=== PATIENT | female | born 1940 | race Caucasian/White ===

== ENCOUNTER 2016-05-07 14:28 | Emergency (ER) | payer OTHER ==
[2016-05-07 15:01] VITALS: O2SAT 98
[2016-05-07] MEDS ORDERED: NS 1,000 ML IV ONE ×2 (15:55→16:45)
--- NOTE | 2016-05-07 16:13 | UCPHY ---
H & P Patient Type: New Chief Complaint Nursing Narrative: fatigue, n/v/d lasting 3 days, resolved 1 day ago, light headed Time Seen by Provider: 05/07/16 16:03 HPI/ROS: HPI: 76-year-old female presents to urgent care with chief concern fatigue, weakness after nausea, vomiting, diarrhea x3 days that ended yesterday. Reports associated lightheadedness when she moves quickly. She is eating and drinking without difficulty. 1 day prior to onset of the gastroenteritis she had 9 days of a URI symptoms associated with decreased appetite. Her son who she lives with was concerned that she was fatigued after these illnesses and brought her in for IV fluids. Denies fever, chills, headache, URI symptoms currently, shortness of breath, chest pain, abdominal pain, urinary symptoms, back or flank pain. Home medication includes valsartan. The past medical history notable for hypertension. ROS:10 point review of systems is negative other than as stated in HPI Source: Patient Exam Limitations: No limitations - Medical/Surgical History Other PMH: htn - Family History Significant Family History: No pertinent family hx - Social History Smoking Status: Never smoked Alcohol Use: None Drug Use: None Additional Social History: Lives with her son - Physical Exam Exam: Vital signs stable, reviewed by me General: Awake, alert, calm, cooperative. No acute distress. Head: Normalocephalic. Atraumatic. EENT: PERRLA. EOMI. No pallor or injection. Anicteric. No nystagmus. No injection. TMs intact bilaterally with normal landmarks. No rhinnorhea, nasal passages clear. Oropharynx without redness, exudates, or lesions. Tonsils 2+ bilaterally, no exudates. Neck: Supple, nontender. No lymphadenopathy. Full range of motion. No meningismus. Respiratory: Breathing unlabored. Breath sounds equal bilaterally and clear to auscultation. No adventitious sounds. CV: Chest nontender, atraumatic. Heart rate regular. No murmur, distal pulses 2+ bilaterally. Brisk cap refill all extremities. GI: Abdomen soft, nontender. Bowel sounds normoactive and positive x4 quadrants. : No suprapubic tenderness. No CVA or flank tenderness. Neuro: Alert. Oriented x 3. Speech clear. Nonfocal cranial nerves throughout. Sensation intact all extremities. Skin: Skin warm, dry, intact. Mucous membranes moist. No rashes. Skin turgor normal. Extremities: Full range of motion in all 4 extremities. Strength 5+ all extremities. Constitutional: Initial Vital Signs Temperature (C) 36.3 C 05/07/16 14:35 Heart Rate 62 05/07/16 14:35 Respiratory Rate 18 05/07/16 14:35 Blood Pressure 132/61 H 05/07/16 14:35 O2 Sat (%) 98 05/07/16 14:35 O2 Delivery Mode Room Air Allergies/Adverse Reactions: No Known Allergies Allergy (Unverified 05/07/16 14:56) Home Medications: Medication Instructions Recorded Valsartan [Diovan] 05/07/16 Medical Decision Making ED Course/Re-evaluation: A 76-year-old afebrile nontoxic female presents to the urgent care after 3 days of nausea, vomiting, diarrhea. She presents because her son was concerned as she was weak and fatigued at for nausea and vomiting for 3 days. Nausea and vomiting ended yesterday. Patient is tolerating food and fluids presently. Her vitals are stable. She is afebrile. IV started. Labs pending. We will check her electrolytes. She will be given 2 L normal saline. She has no discomfort whatsoever. Her abdomen is soft with positive bowel sounds. White count 9880. 67.5% neutrophils. Sodium 135. Potassium 3.5. Chloride 99. CO2 23, anion gap 13, Mag 1.9. BUN 32, creatinine 1.4. Patient was given 2 L normal saline. 1710: After 2 L normal saline, patient voiding. Vitals stable. She feels much better. Counseled to follow up next week with primary care. Verbalizes understanding and agrees to do so. Differential Diagnosis: Differential diagnosis includes but is not limited to gastroenteritis, food- borne illness, viral syndrome, food allergy, IBS, IBD - Data Points Laboratory Results: Laboratory Results 05/07/16 16:05 05/07/16 16:05 05/07/16 16:05 WBC 9.88 H 10^3/uL (3.80-9.50) RBC 4.47 10^6/uL (4.18-5.33) Hgb 15.1 g/dL (12.6-16.3) Hct 43.6 % (38.0-47.0) MCV 97.5 fL (81.5-99.8) MCH 33.8 pg (27.9-34.1) MCHC 34.6 g/dL (32.4-36.7) RDW 11.5 % (11.5-15.2) Plt Count 285 10^3/uL (150-400) MPV 9.5 fL (8.7-11.7) Neut % (Auto) 67.5 % (39.3-74.2) Lymph % (Auto) 22.3 % (15.0-45.0) [place] % (Auto) 9.0 % (4.5-13.0) Eos % (Auto) 0.5 L % (0.6-7.6) Baso % (Auto) 0.5 % (0.3-1.7) Nucleat RBC Rel Count 0.0 % (0.0-0.2) Absolute Neuts (auto) 6.67 H 10^3/uL (1.70-6.50) Absolute Lymphs (auto) 2.20 10^3/uL (1.00-3.00) Absolute Monos (auto) 0.89 H 10^3/uL (0.30-0.80) Absolute Eos (auto) 0.05 10^3/uL (0.03-0.40) Absolute Basos (auto) 0.05 10^3/uL (0.02-0.10) Absolute Nucleated RBC 0.00 10^3/uL (0-0.01) Immature Gran % 0.2 % (0.0-1.1) Immature Gran # 0.02 10^3/uL (0.00-0.10) Sodium 135 mEq/L (134-144) Potassium 3.5 mEq/L (3.5-5.2) Chloride 99 mEq/L (97-110) Carbon Dioxide 23 mEq/l (22-31) Anion Gap 13 mEq/L (8-16) BUN 32 H mg/dL (7-23) Creatinine 1.4 H mg/dL (0.6-1.0) Estimated GFR 37 Glucose 96 mg/dL (70-100) Calcium 9.3 mg/dL (8.5-10.4) Magnesium 1.9 mg/dL (1.6-2.3) Medications Given: Discontinued Medications Sodium Chloride (Ns) 1,000 mls @ 0 mls/hr IV ONCE ONE PRN Reason: Wide Open Stop: 05/07/16 15:56 Last Admin: 05/07/16 16:15 Dose: 1,000 mls Sodium Chloride (Ns) 1,000 mls @ 0 mls/hr IV ONCE ONE PRN Reason: Wide Open Stop: 05/07/16 16:46 Last Admin: 05/07/16 16:46 Dose: 1,000 mls Departure - Departure Disposition: Home, Routine, Self-Care Clinical Impression: Gastroenteritis, Dehydration, Prerenal azotemia Condition: Good Instructions: Gastroenteritis (ED), Dehydration (ED) Additional Instructions: Plan: Go home and rest. Clear liquids if nauseated, advance to bland diet as tolerated.(broth, bananas, rice, applesauce, and toast.) Avoid dairy, caffeine, fatty foods, and raw vegetables for now. Might try Imodium over the counter for diarrhea. Might try using Psyllium husk (Metamucil) 2-3 times daily to increase bulk. Recheck if any bloody vomit, dark or bloody stools. Recheck right away if worsening abdominal pain. Good handwashing to prevent spread of infection. Follow up with primary care next week as discussed--When you call to schedule appointment, please let the office know you are an "ER follow up" appointment" Referrals: NONE *PRIMARY CARE P,. [Primary Care Provider] - As per Instructions - PQRS PQRS Measurement: 134: Depression screening and followup, PRIME MD-PHQ2 (12 years and older) Over the last 2 weeks, how often have you been bothered by any of the following problems? 1. Feeling down, depressed, or hopeless? 2. Little interest or pleasure in doing things? Patient answered no to both 1 and 2 130: Documentation of medications. Reviewed all patient medications, doses, route and frequency. 226: Do you smoke? No 47: 65 and older: Advanced care planning. Patient has advanced directive. 51: 18 years old and older with diagnosis of COPD, spirometry performance. Patient has no history of COPD 52: 18 years old and older with COPD and symptoms of COPD or FEV1<60% no history of COPD
[2016-05-07 16:14] LABS: % IMMATURE GRANULYOCYTES 0.2 % (0.0-1.1); ABSOLUTE IMMATURE GRANULOCYTES 0.02 10^3/uL (0.00-0.10); ADD DIFF? NO; ADD MORPH? NO; ADD SCAN? NO; ATYPICAL LYMPHOCYTE FLAG 50 (0-99); FRAGMENT RBC FLAG 0 (0-99); HEMATOCRIT 43.6 % (38.0-47.0); HEMOGLOBIN 15.1 g/dL (12.6-16.3); LEFT SHIFT FLG 0 (0-99); LIPEMIA HEMOLYSIS FLAG 90 (0-99); MEAN CELL HEMOGLOBIN 33.8 pg (27.9-34.1); MEAN CELL HEMOGLOBIN CONCENTR. 34.6 g/dL (32.4-36.7); MEAN CELL VOLUME 97.5 fL (81.5-99.8); MEAN PLATELET VOLUME 9.5 fL (8.7-11.7); PLATELET CLUMPS FLAG 10 (0-99); PLATELET COUNT 285 10^3/uL (150-400); RED BLOOD CELL COUNT 4.47 10^6/uL (4.18-5.33); RED CELL DISTRIBUTION WIDTH 11.5 % (11.5-15.2)
[2016-05-07 16:25] LABS: CALCIUM 9.3 mg/dL (8.5-10.4); CREATININE 1.4 mg/dL (0.6-1.0); MAGNESIUM 1.9 mg/dL (1.6-2.3); POTASSIUM 3.5 mEq/L (3.5-5.2)
[2016-05-07 17:20] VITALS: BP 112/74; PULSE 99; RESP 16; TEMP 98.2
== END 2016-05-07 17:25 | disposition home or self-care (01) ==
LOC: CED 14:28
DX: K52.9 Noninfective gastroenteritis and colitis, unspecified (principal); E86.0 Dehydration; I10 Essential (primary) hypertension
CPT/HCPCS: 96360; G0463; 80048-PO; 83735-PO; 85025-PO

== ENCOUNTER 2017-06-06 15:48 | Emergency (ER) | payer OTHER ==
[2017-06-06 16:04] VITALS: RESP 20
--- NOTE | 2017-06-06 16:17 | CPEKG ---
Heart Rate: 122 RR Interval: 492 QRSD Interval: 70 QT Interval: 300 QTC Interval: 428 QRS Rison: 10 T Wave Rison: 12 EKG Severity - ABNORMAL ECG - EKG Impression: ATRIAL FIBRILLATION, V-RATE 82-147 EKG Impression: BORDERLINE T ABNORMALITIES, ANTERIOR LEADS Electronically Signed By: Olivier Oviedo 06-Jun-2017 22:00:59
[2017-06-06 16:31] LABS: PLATELET COUNT 487 10^3/uL (150-400)
[2017-06-06] MEDS ORDERED: ASPIRIN 81 MG CHEWABLE TAB PO ONE (16:57)
[2017-06-06] MEDS ORDERED: IOPAMIDOL (ISOVUE 370) 100 ML BTL IV ONE (17:07)
[2017-06-06] MEDS ORDERED: FUROSEMIDE 20 MG/2 ML VIAL IVP ONE (17:57)
--- NOTE | 2017-06-06 18:17 | EDPHY ---
H & P Stated Complaint: sent from PCP for further pne work up Time Seen by Provider: 06/06/17 15:53 HPI/ROS: This patient saw her primary care physician today with history of chest discomfort with inspiration and occasional mild cough noted to have diminished breath sounds at the bases and a chest x-ray that revealed bilateral pleural effusions and atelectasis versus infiltrate concerning primary physician for pneumonia. The patient was apparently seen yesterday and then had her chest x- ray today. She was started on Zithromax and took the 500 mg dose prior to arrival. The patient has the impression that she is dehydrated and needs some IV fluids. She reports some fatigue associated with her symptoms. She has a known history of chronic atrial fibrillation and does not currently take any medications for this. ROS: She denies any fevers or chills. She does have fatigue and mild myalgias. HEENT: Some coryza over the past 4-5 days. No sinus pain. No ear pain. Pulmonary: She denies shortness of breath. She reports occasional dry cough over the past 4 days. No hemoptysis. No pleuritic pain. Cardiovascular: No leg swelling. She denies any lightheadedness. GI: No abdominal pain nausea or vomiting. Normal bowel movements. : No complaints Integumentary: No skin rash or other complaints Endocrine: No complaints Neuro: Her [id number] reports that the patient does seem to be experiencing some early dementia symptoms. She cites difficulty with memory. Complete review of symptoms is otherwise negative. Source: Patient Exam Limitations: No limitations - Personal History Current Tetanus Diphtheria and Acellular Pertussis (TDAP): Unsure - Medical/Surgical History PMH: Chronic atrial fibrillation Mild dementia Other PMH: htn/ Afib - Family History Significant Family History: No pertinent family hx - Social History Smoking Status: Never smoked Alcohol Use: None Drug Use: None Additional Social History: Lives with her son and [id number]. - Physical Exam Exam: Vital signs are notable for pulse ranges from 100 to high 120s. Irregularly irregular. Other vitals are normal including afebrile status. General Appearance: Alert, no distress. Eyes: Pupils equal and round no pallor or injection. ENT, Mouth: Mucous membranes moist. Respiratory: Diminished at the bases. Otherwise clear to auscultation bilaterally Cardiovascular: Irregularly irregular with no murmur gallop rub Gastrointestinal: Abdomen is soft and nontender, no masses, bowel sounds normal. Neurological: GCS 15. Skin: Warm and dry, no rashes. Musculoskeletal: Neck is supple nontender. Extremities are symmetrical, full range of motion. Psychiatric: Mood and affect are normal DIFFERENTIAL DIAGNOSIS: After history and physical exam differential diagnosis was considered for pneumonia, congestive heart failure, pulmonary embolism, bronchitis, URI with cough, coronary syndrome Constitutional: Initial Vital Signs Temperature (C) 37 C 06/06/17 16:02 Heart Rate 112 H 06/06/17 16:02 Respiratory Rate 20 06/06/17 16:02 Blood Pressure 126/93 H 06/06/17 16:02 O2 Sat (%) 98 06/06/17 16:02 O2 Delivery Mode Room Air Allergies/Adverse Reactions: No Known Allergies Allergy (Unverified 05/07/16 14:56) Home Medications: Medication Instructions Recorded AZITHROMYCIN 06/06/17 Furosemide [Lasix 20 MG (*)] 20 mg PO DAILY #30 tab 06/06/17 Metoprolol Succinate Xr [Toprol Xl 12.5 mg PO DAILY #30 tab.sr 06/06/17 25 mg (*)] Potassium Cl [Klor-Con 10 meq (RX)] 10 meq PO DAILY #30 tab 06/06/17 Medical Decision Making - Diagnostics EKG Interpretation: 12 lead EKG performed at 4:15 p.m. indication fatigue, rule out coronary syndrome or right heart strain Atrial fibrillation at 1:22 a.m. QRS of 70, QTC of 428 [place]: QRS of 10, T of 12 ST segments: Slight biphasic T-wave in V2 and V3. Otherwise normal Overall assessment atrial fibrillation with borderline T-wave abnormalities anterior leads. Imaging Results: Imaging Impressions Chest/Thorax CTA 06/06/17 16:56 Impression: 1. No evidence of pulmonary thromboembolic disease. 2. Cardiomegaly. Mild pericardial effusion. Small bilateral pleural effusions. Potential component of congestive heart failure. 3. Mild atelectasis both lung bases. Minimal atelectasis lingula and right middle lobe. 4. Calcified granuloma right upper lobe. Results called and discussed with Olivier Oviedo M.D., at June 06, 2017 at 1747. E:amm Imaging: Discussed imaging studies w/ inbound call center agent Radiologist (CT angio chest. I also reviewed these images and the patient's chest x-ray images myself) ED Course/Re-evaluation: IV, monitor After reviewing her chest film missing effusions and atrial fibrillation I stop the IV normal saline after she received 250 IV concerned that she may have failure. Studies: CBC reveals significant leukocytosis. Chemistries reveal normal kidney function. Influenza swab is negative. D-dimer significantly elevated 3.78 BNP is also significantly elevated over 3700. Her troponin is normal Chest CT angio ruled out pulmonary embolism. Also no evidence of airway disease per Dr. Vogt. She does have mild atelectasis and effusions as well as a small pericardial effusion. Given her cough and significant leukocytosis will have her continue her Zithromax. She did receive IV Rocephin shortly after arrival here concern of pneumonia white count 80042. However, as result of her workup her main problem seems to be congestive heart failure with associated pulmonary effusion rather than a primary pneumonia. I counseled her , her daughter in law and her son in some detail regarding this. She is treated with Lasix 20 mg IV with diuresis. I spoke with Dr. Salmeron, cardiology on-call for Dr. Quinonez, her web mobile designer who agrees with the plan to have her take Lasix 20 mg a day. At this low dose she does not warrant potassium supplementation but she is eating a normal diet. Dr. Salmeron also suggests that we start her on low dose metoprolol-12.5 mg a day to help rate control or. However after this discussion the patient reveals that she felt cognitive difficulties while on metoprolol in the past and refuses to start this medication. A plan to have her continue her Zithromax given her significant leukocytosis and cough as he may have a mild bronchitis contributing to the symptoms. The patient will follow up with Dr. Quinonez this week. Also encouraged her to follow up with her primary care physician Dr. Gonzalez - Data Points Laboratory Results: Laboratory Results 06/06/17 16:22 06/06/17 16:22 06/06/17 06/06/17 06/06/17 16:22 16:22 16:22 WBC 19.09 10^3/uL H 10^3/uL (3.80-9.50) RBC 3.35 10^6/uL L 10^6/uL (4.18-5.33) Hgb 11.3 g/dL L g/dL (12.6-16.3) Hct 33.0 % L % (38.0-47.0) MCV 98.5 fL fL (81.5-99.8) MCH 33.7 pg pg (27.9-34.1) MCHC 34.2 g/dL g/dL (32.4-36.7) RDW 13.1 % % (11.5-15.2) Plt Count 487 10^3/uL H 10^3/uL (150-400) MPV 9.1 fL fL (8.7-11.7) Neut % (Auto) 73.6 % % (39.3-74.2) Lymph % (Auto) 17.5 % % (15.0-45.0) [place] % (Auto) 7.5 % % (4.5-13.0) Eos % (Auto) 0.5 % L % (0.6-7.6) Baso % (Auto) 0.3 % % (0.3-1.7) Nucleat RBC Rel Count 0.0 % % (0.0-0.2) Absolute Neuts (auto) 14.05 10^3/uL H 10^3/uL (1.70-6.50) Absolute Lymphs (auto) 3.35 10^3/uL H 10^3/uL (1.00-3.00) Absolute Monos (auto) 1.44 10^3/uL H 10^3/uL (0.30-0.80) Absolute Eos (auto) 0.09 10^3/uL 10^3/uL (0.03-0.40) Absolute Basos (auto) 0.05 10^3/uL 10^3/uL (0.02-0.10) Absolute Nucleated RBC 0.00 10^3/uL 10^3/uL (0-0.01) Immature Gran % 0.6 % % (0.0-1.1) Immature Gran # 0.11 10^3/uL H 10^3/uL (0.00-0.10) D-Dimer 3.87 ug/mLFEU H ug/mLFEU (0.00-0.50) VBG Lactic Acid Sodium 138 mEq/L mEq/L (135-145) Potassium 4.3 mEq/L mEq/L (3.5-5.2) Chloride 103 mEq/L mEq/L (97-110) Carbon Dioxide 22 mEq/l mEq/l (22-31) Anion Gap 13 mEq/L mEq/L (8-16) BUN 18 mg/dL mg/dL (7-23) Creatinine 0.8 mg/dL mg/dL (0.6-1.0) Estimated GFR > 60 Glucose 91 mg/dL mg/dL (70-100) Calcium 9.3 mg/dL mg/dL (8.5-10.4) Troponin I NT-Pro-B Natriuret Pep 3790 pg/mL H pg/mL (0-450) 06/06/17 06/06/17 16:22 16:20 WBC RBC Hgb Hct MCV MCH MCHC RDW Plt Count MPV Neut % (Auto) Lymph % (Auto) [place] % (Auto) Eos % (Auto) Baso % (Auto) Nucleat RBC Rel Count Absolute Neuts (auto) Absolute Lymphs (auto) Absolute Monos (auto) Absolute Eos (auto) Absolute Basos (auto) Absolute Nucleated RBC Immature Gran % Immature Gran # D-Dimer VBG Lactic Acid 1.5 mmol/L mmol/L (0.7-2.1) Sodium Potassium Chloride Carbon Dioxide Anion Gap BUN Creatinine Estimated GFR Glucose Calcium Troponin I < 0.012 ng/mL ng/mL (0.000-0.034) NT-Pro-B Natriuret Pep Medications Given: Discontinued Medications Aspirin (Aspirin) 324 mg PO EDNOW ONE Stop: 06/06/17 16:58 Last Admin: 06/06/17 16:58 Dose: Not Given Furosemide (Lasix Injection) 20 mg IVP EDNOW ONE Stop: 06/06/17 17:58 Last Admin: 06/06/17 18:06 Dose: 20 mg Ceftriaxone Sodium/Dextrose (Rocephin 1 Gm (Premix)) 50 mls @ 100 mls/hr IV EDNOW ONE PRN Reason: Protocol Stop: 06/06/17 17:13 Last Admin: 06/06/17 16:56 Dose: 50 mls Departure - Departure Disposition: Home, Routine, Self-Care Clinical Impression: Pericardial effusion, Pleural effusion, Cough Congestive heart failure (CHF) Qualifiers: Heart failure type: unspecified Heart failure chronicity: chronic Qualified Code(s): I50.9 - Heart failure, unspecified Atrial fibrillation Qualifiers: Atrial fibrillation type: chronic Qualified Code(s): I48.2 - Chronic atrial fibrillation Condition: Good Instructions: Heart Failure (ED), Pleural Effusion (ED), Pericardial Effusion ( ED), Low-Sodium Diet (ED) Additional Instructions: Diagnoses: 1. Congestive heart failure 2. Pericardial effusion 3. Pleural effusion 4. Atrial fibrillation 5. Cough Plan: Take 325 mg aspirin daily Complete ear Zithromax antibiotic course Start Lasix water pill in the morning daily. Start metoprolol succinate-half a 25 mg tab per day to help control your heart rate. This will make the heart more efficient in its pumping Call Dr. Quinonez-web mobile designer for further evaluation Also follow up with Dr. Caldera, your primary care physician Return for any significant worsening despite the treatment plan Referrals: NITA GONZALEZ [Primary Care Provider] - As per Instructions Uriah Quinonez MD [Medical Doctor] - As per Instructions Prescriptions: Furosemide [Lasix 20 MG (*)] 20 mg PO DAILY #30 tab Metoprolol Succinate Xr [Toprol Xl 25 mg (*)] 12.5 mg PO DAILY #30 tab.sr Potassium Cl [Klor-Con 10 meq (RX)] 10 meq PO DAILY #30 tab
[2017-06-06 18:42] VITALS: BP 110/62; PULSE 124; TEMP 98; O2SAT 93
== END 2017-06-06 18:40 | disposition home or self-care (01) ==
LOC: CED 15:48
DX: I31.3 Pericardial effusion (noninflammatory) (principal); J90 Pleural effusion, not elsewhere classified; I48.2 Chronic atrial fibrillation; I11.0 Hypertensive heart disease with heart failure; I50.9 Heart failure, unspecified
CPT/HCPCS: 71275; 93005; 96365; 96375; 99285; J0696; J1940; Q9967; 71046-PO; 80048-PO; 83605-PO; 83880-PO; 84484-PO; 85025-PO; 85378-PO

== ENCOUNTER → 2017-06-06 | Outpatient (CLI) | payer OTHER | LOC: CIMAGING 10:08 | PROVIDERS: ATTEND Family Medicine | DX: J18.9 Pneumonia, unspecified organism (principal); R91.8 Other nonspecific abnormal finding of lung field | CPT/HCPCS: 71046-PO ==

== ENCOUNTER 2017-06-15 10:41 | Emergency (ER) | payer OTHER ==
[2017-06-15 11:01] VITALS: O2SAT 95
[2017-06-15 11:07] VITALS: TEMP 97.7
--- NOTE | 2017-06-15 11:09 | EDPHY ---
H & P Time Seen by Provider: 06/15/17 10:45 HPI/ROS: HPI Recheck from 1 week ago. Not feeling well. 77-year-old female by private vehicle with her daughter. This patient was seen on June [address] Olivier Oviedo. At that time she was sent down to our emergency department from her primary care physician's office for further evaluation for complaint of mild cough with shortness of breath and office chest x-ray which showed bilateral pleural effusions. She was placed on azithromycin by her primary care physician. She has a history of atrial fibrillation and is not anticoagulated nor did she take any rate control medications. She also has a history of hypertension for which she is supposed to take losartan but she states she has been out of this medication for about 3 days. Her workup on June [address] angiogram of her chest which was done secondary to an elevated D-dimer. This showed a mild pericardial effusion and small bilateral pleural effusions. No pulmonary embolism. Her EKG at that time showed a narrow complex atrial fibrillation with ventricular rate in the 120s. She had an elevated BNP in the 3 thousands and a negative troponin during that visit. In consultation with the on-call senior reservations agent during that visit it was advised that she be placed on low-dose Lasix at 20 mg daily as well as metoprolol. She agreed to taking the Lasix but refused to take the metoprolol because she said it made her dementia worse. She reports to me now that she has been taking the Lasix. She came in stating that she wanted her blood work recheck. She states that she has been feeling fatigued and achy. She reports she was worse yesterday and feels better today but still feels fatigued. She has a follow-up appointment with her senior reservations agent tomorrow. This is Dr. Quinonez, she is scheduled to see his nurse practitioner geological survey field assistant. ROS: Constitutional: No fever, no chills. As above. Eyes: No discharge. No changes in vision. ENT: No sore throat. No nasal congestion or rhinorrhea. Respiratory: No cough. No shortness of breath. Cardiac: No chest pain, no palpitations. Gastrointestinal: No abdominal pain, no vomiting, no diarrhea. Genitourinary: No hematuria. No dysuria or increased frequency with urination. Musculoskeletal: No back pain. No neck pain. No myalgias or arthralgias. Skin: No rashes. Neurological: No headache. No focal weakness or altered sensation. Past medical history: Chronic atrial fibrillation, hypertension, dementia. Social history: No alcohol. She does not smoke. No drug use. She lives with her son and daughter in law. Physical Exam: General Appearance: Alert, no distress. This patient is responding to questions appropriately and in full sentences. This patient appears well- hydrated and well-nourished. Eyes: Pupils equal and round no pallor or injection. No lid edema, erythema or injection. Respiratory: There are no retractions, lungs are clear to auscultation with good air movement bilaterally. Cardiovascular: Irregular, irregular tachycardia. No murmur. Gastrointestinal: Abdomen is soft and nontender, no masses, bowel sounds normal. No focal tenderness at McBurney's point. No Bernabe sign. Neurological: Motor sensory function is grossly intact. Cranial nerves are normal. Gait is normal. Skin: Warm and dry, no rashes. Musculoskeletal: Neck is supple and nontender. Extremities are symmetrical. All joints range without pain or impingement. Psychiatric: No agitation. No depression. Database: EKG: EKG time is 10:55 a.m.; EKG shows a narrow complex atrial fibrillation with rapid ventricular response. Rate average is 151. No ST, T-wave changes indicative of ischemic or injury pattern. No evidence of right heart strain. Interpreted by me. Imaging: Chest x-ray PA and lateral; the cardiac mediastinal silhouette is unremarkable. Small bilateral pleural effusions noted. These appear unchanged from her CT plain goods hemmer films on June 06 of this year. No evidence of acute infiltrate or pneumothorax. No other acute cardiopulmonary disease process noted. Interpreted by me. Procedures: Emergency department course: IV placed, vital signs reviewed. She is afebrile. Tachycardic but otherwise vital signs normal. EKG obtained and reviewed by myself. I discussed treatment with rate control medication. She is very adamant that she does not want to do this at this time and her daughter concurs. She states that she will follow up with her senior reservations agent as noted above tomorrow and discuss her treatment options further. She is asking for recheck of her blood work and her chest x-ray. 12:30 p.m., patient re-evaluated. Resting comfortably at this time. She has no complaints. She is still in a narrow complex atrial fibrillation with rapid ventricular response ranging from the 120s to the low 140s. I discussed the results of her emergency department workup with both her and her daughter. I discussed her low TSH and likely hyperthyroid state. I explained to them that this was likely contributing to her fast heart rate and atrial fibrillation as well as her other symptoms. I have course discussed admission for immediate treatment and further evaluation of this condition. Both she and her daughter do not want to be admitted. They are requesting that they be discharged and they will follow up with her senior reservations agent, Dr. Quinonez, at 9:45 a.m. Tomorrow. I explained that his office would have access to all of her study results done here today. I also explained that I have ordered additional thyroid testing and that the results of her free T3 and free T4 would be available by her follow -up appointment time tomorrow. In my professional opinion both the patient and the daughter understand the risks of her condition such as increased stroke risk , myocardial infarction, degeneration to a lethal a arrhythmia. I explained that it was very important that she be seen by her senior reservations agent tomorrow and that she be treated for her hyper thyroid state. I also discussed evaluation by a calcine furnace loader. The patient competently engages in shared decision making with her daughter and myself. They demonstrate capacitance to make decisions. Differential Diagnosis: The differential diagnosis on this patient includes but is not limited to atrial fibrillation with rapid ventricular response, hyperthyroidism, thyroiditis, viral syndrome, congestive heart failure. Thyroid storm unlikely. Acute coronary syndrome, serious bacterial infection, influenza unlikely. This represents a partial list of diagnoses considered. These considerations are based on history, physical exam, past history, reassessment and diagnostic testing. Smoking Status: Never smoked Constitutional: Initial Vital Signs Temperature (C) 36.5 C 06/15/17 10:47 Heart Rate 150 H 06/15/17 10:47 Respiratory Rate 18 06/15/17 10:47 Blood Pressure 123/81 H 06/15/17 10:47 O2 Sat (%) 95 06/15/17 10:47 O2 Delivery Mode Room Air Allergies/Adverse Reactions: No Known Allergies Allergy (Verified 06/15/17 11:01) Home Medications: Medication Instructions Recorded Furosemide [Lasix 20 MG (*)] 20 mg PO DAILY #30 tab 02/13/18 Valsartan 06/15/17 Medical Decision Making - Diagnostics Imaging Results: Imaging Impressions Chest X-Ray 06/15/17 11:03 Impression: 1. Stable mild to moderate bibasilar pleural effusions with adjacent compressive atelectatic change. - Data Points Laboratory Results: Laboratory Results 06/15/17 11:06 06/15/17 11:06 06/15/17 06/15/17 06/15/17 11:25 11:06 11:06 WBC 19.85 10^3/uL H 10^3/uL (3.80-9.50) RBC 3.84 10^6/uL L 10^6/uL (4.18-5.33) Hgb 12.8 g/dL g/dL (12.6-16.3) Hct 37.4 % L % (38.0-47.0) MCV 97.4 fL fL (81.5-99.8) MCH 33.3 pg pg (27.9-34.1) MCHC 34.2 g/dL g/dL (32.4-36.7) RDW 12.7 % % (11.5-15.2) Plt Count 485 10^3/uL H 10^3/uL (150-400) MPV 8.7 fL fL (8.7-11.7) Neut % (Auto) 75.7 % H % (39.3-74.2) Lymph % (Auto) 16.4 % % (15.0-45.0) [place] % (Auto) 7.0 % % (4.5-13.0) Eos % (Auto) 0.2 % L % (0.6-7.6) Baso % (Auto) 0.3 % % (0.3-1.7) Nucleat RBC Rel Count 0.0 % % (0.0-0.2) Absolute Neuts (auto) 15.04 10^3/uL H 10^3/uL (1.70-6.50) Absolute Lymphs (auto) 3.25 10^3/uL H 10^3/uL (1.00-3.00) Absolute Monos (auto) 1.38 10^3/uL H 10^3/uL (0.30-0.80) Absolute Eos (auto) 0.04 10^3/uL 10^3/uL (0.03-0.40) Absolute Basos (auto) 0.06 10^3/uL 10^3/uL (0.02-0.10) Absolute Nucleated RBC 0.00 10^3/uL 10^3/uL (0-0.01) Immature Gran % 0.4 % % (0.0-1.1) Immature Gran # 0.08 10^3/uL 10^3/uL (0.00-0.10) Sodium 141 mEq/L mEq/L (135-145) Potassium 4.2 mEq/L mEq/L (3.5-5.2) Chloride 100 mEq/L mEq/L (97-110) Carbon Dioxide 22 mEq/l mEq/l (22-31) Anion Gap 19 mEq/L H mEq/L (8-16) BUN 13 mg/dL mg/dL (7-23) Creatinine 0.8 mg/dL mg/dL (0.6-1.0) Estimated GFR > 60 Glucose 110 mg/dL H mg/dL (70-100) Calcium 8.9 mg/dL mg/dL (8.5-10.4) Creatine Kinase 21 IU/L IU/L (0-156) CK-MB (CK-2) Fraction < 0.22 ng/mL ng/mL (0.00-4.55) Troponin I < 0.012 ng/mL ng/mL (0.000-0.034) NT-Pro-B Natriuret Pep 1970 pg/mL H pg/mL (0-450) TSH 0.187 uIU/mL L uIU/mL (0.465-4.680) Influenza A,B Rapid NEGATIVE FOR FLU (NEGATIVE) Departure - Departure Disposition: Home, Routine, Self-Care Clinical Impression: Atrial fibrillation with RVR, Hyperthyroidism, Leukocytosis, Thrombocytosis Condition: Good Instructions: Hyperthyroidism (ED), A-fib (Atrial Fibrillation) (ED) Additional Instructions: Read and follow provided instructions. Follow-up with your senior reservations agent, tomorrow as scheduled at 9:45 a.m. for re- evaluation and further management of your atrial fibrillation. It is also very important that you have your elevated thyroid state managed as we discussed. Discuss this with Dr. Quinonez or his geological survey field assistant. I have also provided you with a referral to an calcine furnace loader. Take your medication as prescribed. Return to the emergency department for worsening symptoms, palpitations, chest pain, shortness of breath, agitation, fever or other serious concerns. Referrals: Uriah Quinonez MD [Medical Doctor] - As per Instructions Chip Burch MD [Medical Doctor] - As per Instructions
[2017-06-15 11:13] LABS: PLATELET COUNT 485 10^3/uL (150-400)
[2017-06-15 11:28] LABS: CREATINE KINASE 21 IU/L (0-156)
--- NOTE | 2017-06-15 11:35 | CPEKG ---
Heart Rate: 151 RR Interval: 397 QRSD Interval: 70 QT Interval: 271 QTC Interval: 430 QRS [place]: 34 T Wave [place]: -74 EKG Severity - ABNORMAL ECG - EKG Impression: ATRIAL FIBRILLATION WITH RAPID V-RATE EKG Impression: BORDERLINE T ABNORMALITIES, DIFFUSE LEADS Electronically Signed By: Carl Barrientos 15-Jun-2017 12:03:31
[2017-06-15 13:02] VITALS: BP 131/84; PULSE 129; RESP 16
== END 2017-06-15 12:50 | disposition home or self-care (01) ==
LOC: CED 10:41
DX: I48.91 Unspecified atrial fibrillation (principal); D47.3 Essential (hemorrhagic) thrombocythemia; D72.829 Elevated white blood cell count, unspecified; E03.9 Hypothyroidism, unspecified; I10 Essential (primary) hypertension
CPT/HCPCS: 71046-PO; 80048-PO; 82550-PO; 82553-PO; 83880-PO; 84439-PO; 84443-PO; 84481-PO; 84484-PO; 85025-PO; 87400-PO

== ENCOUNTER → 2017-06-19 | Outpatient (CLI) | payer OTHER | LOC: BHFA 13:15 | PROVIDERS: ATTEND Internal Medicine Cardiovascular Disease | DX: I48.91 Unspecified atrial fibrillation (principal); I31.3 Pericardial effusion (noninflammatory) ==

== ENCOUNTER 2017-07-04 14:18 | Emergency (ER) | payer OTHER ==
--- NOTE | 2017-07-04 15:13 | EDPHY ---
H & P Stated Complaint: fever and cough BA x 3 days. Source: Patient, Family - Personal History Current Tetanus/Diphtheria Vaccine: Unsure Current Tetanus Diphtheria and Acellular Pertussis (TDAP): Unsure - Medical/Surgical History Hx Asthma: No Hx Chronic Respiratory Disease: No Hx Diabetes: No Hx Cardiac Disease: Yes Hx Renal Disease: No Hx Cirrhosis: No Hx Alcoholism: No Hx HIV/AIDS: No Hx Splenectomy or Spleen Trauma: No Other PMH: Med hx-htn/ Afib,c-diff(02/2017). Surg-hyst - Social History Smoking Status: Never smoked Time Seen by Provider: 07/04/17 14:34 HPI/ROS: CHIEF COMPLAINT: Fever and malaise History by patient and her daughter HISTORY OF PRESENT ILLNESS: 77-year-old woman with a history of AFib and thyroid disease presents complaining of 3-4 days of episodes of weakness and fatigue, subjective fevers well as fever measured to 101.5 at home associated with some cough which is not typically productive. Patient denied headache, neck stiffness, sore throat, nasal congestion, nausea, vomiting or diarrhea. She denies any back pain or urinary symptoms. She has been seen for similar symptoms several times over the past few months which have also been attributed to her AFib. Patient is not currently on any blood thinning medication but does take a rate control medicine. Earlier today the patient called her son and said she was not feeling well he found her too weak to be able to get herself out to the car without him carrying her. REVIEW OF SYSTEMS: As in HPI, and all other systems reviewed and are negative (Estela Elkins) - Physical Exam Exam: General Appearance: Alert, pleasant, nontoxic. Head: normocephalic, atraumatic Eyes: Pupils equal and round, reactive to light, slight pallor Mouth: Mucous membranes moist. Respiratory: Normal, effort, lungs are clear to auscultation. No wheezes, rales or rhonchi but with some bronchial breath sounds aunt question egophony in the right lower lobe Cardiovascular: Regular rate and rhythm. S1, S2, no murmurs, gallops or rubs appreciated Gastrointestinal: Abdomen is soft and nontender, no masses, bowel sounds normal. Back: No CVA tenderness, no bony tenderness Neurological: Awake, alert and oriented x 3, no pronator drift, normal gait, no pronator drift Skin: Warm and dry, no rashes. Musculoskeletal: No deformities or tenderness. Extremities: full range of motion, no edema, DP2+ bilat Psychiatric: Patient has normal affect, there is no agitation. (Estela Elkins) Constitutional: Initial Vital Signs Temperature (C) 37.4 C 07/04/17 14:26 Heart Rate 108 H 07/04/17 14:26 Respiratory Rate 18 07/04/17 14:26 Blood Pressure 118/74 07/04/17 14:26 O2 Sat (%) 95 07/04/17 14:26 O2 Delivery Mode Room Air Allergies/Adverse Reactions: No Known Allergies Allergy (Verified 07/04/17 14:29) Home Medications: Medication Instructions Recorded Furosemide [Lasix 20 MG (*)] 20 mg PO DAILY #30 tab 06/06/17 [place] Thyroid 07/04/17 Oseltamivir Phosphate [Tamiflu 75 75 mg PO BID #10 cap 07/04/17 mg (RX)] Verapamil ER 07/04/17 Medical Decision Making - Diagnostics EKG Interpretation: EKG time is 3:43 p.m.: EKG shows a narrow complex atrial fibrillation with ventricular rate average of 92. Ventricular premature complexes noted. Nonspecific T-wave flattening in the lateral leads. Interpreted by me. Repeat EKG time 4:23 p.m.: EKG shows a narrow complex atrial fibrillation versus a flutter with variable block. Ventricular rate of 94. No significant changes from previous. (Carl Barrientos) Imaging Results: Imaging Impressions Chest X-Ray 07/04/17 14:57 Impression: 1. Minimal bronchitis is unchanged. 2. Complete resolution of bilateral pleural effusions and compressive atelectasis since 3 weeks prior. ED Course/Re-evaluation: 77-year-old woman presents with fever to 101.5 at home and weakness. There is no obvious source. I have ordered blood tests, flu swab ECG and chest x-ray and I will transfer care to Dr. Shanda Barrientos for final disposition pending results of the patient's evaluation. (Estela Elkins) I took over care of this patient at 3:00 p.m.. I have seen this patient in the emergency department recently for similar symptoms. Today she presents with complaint of fatigue, fever at home, dry nonproductive cough and generalized weakness. I evaluated the patient at 3:30 p.m.. She does not appear to be in any distress. Her vital signs were reviewed. She is tachycardic in triage at 10: 08 a.m.. She is not tachycardic on my exam. EKG, chest x-ray and blood work pending at this time. Her EKG was compared to previous EKG from her last visit when I saw her on June 13. This showed a narrow complex atrial fibrillation with ventricular rate average of 150. She was scheduled to see Dr. Quinonez for further management of her atrial fibrillation. She declined admission at that time and did not want rate control medication. She currently is on verapamil extended- release. 4:00 p.m., patient had a brief syncopal versus near syncopal episode while getting a chest x-ray. No associated signs or symptoms. Apparently lost consciousness for about 20 sec. While she was sitting upright on the x-ray table. No associated shortness of breath, chest pain, headache. 4:20 p.m., patient re-evaluated. She currently has no complaints. She tells me that as she was coming down the stairs this morning she had a similar episode of lightheadedness but does not think she lost consciousness. I explained to her and her daughter that she should be admitted for observation overnight on a telemetry floor. She is resistant to this idea. This is similar to when she was seen by myself on June 15. She did not want to be admitted in ended up refusing admission. She is currently talking this over with her daughter. I explained the reasoning for admission and the wrist if she declines admission. The patient competently engages in shared decision making. They demonstrate capacitance to make decisions. She understands these risks. Her temperature is now 37.9. She will be given 500 cc of IV normal saline and oral Tylenol. 5:30 p.m., patient re-evaluated. Vital signs reviewed and are normal. She was positive for influenza B. She was started on Tamiflu in the emergency department. She has been up and ambulatory without issue. She declines admission. Her daughter will take her home. Strict follow-up and return to emergency department precautions reviewed thoroughly with the patient and daughter. Oral hydration discussed. All of their questions were answered. The patient was discharged in good condition with her daughter. (Carl Barrientos) - Data Points Laboratory Results: Laboratory Results 07/04/17 15:20 07/04/17 15:20 07/04/17 07/04/17 07/04/17 17:03 15:30 15:29 WBC RBC Hgb Hct MCV MCH MCHC RDW Plt Count MPV Neut % (Auto) Lymph % (Auto) [place] % (Auto) Eos % (Auto) Baso % (Auto) Nucleat RBC Rel Count Absolute Neuts (auto) Absolute Lymphs (auto) Absolute Monos (auto) Absolute Eos (auto) Absolute Basos (auto) Absolute Nucleated RBC Immature Gran % Immature Gran # VBG Lactic Acid 1.0 mmol/L mmol/L (0.7-2.1) Sodium Potassium Chloride Carbon Dioxide Anion Gap BUN Creatinine Estimated GFR Glucose Calcium Troponin I TSH Nasal Influenza A PCR NEGATIVE FOR FLU A (NEGATIVE) Nasal Influenza B PCR FLU B DETECTED H (NEGATIVE) Influenza A,B Rapid POSITIVE FOR FLU B H (NEGATIVE) 07/04/17 07/04/17 07/04/17 15:20 15:20 15:15 WBC 5.39 10^3/uL 10^3/uL (3.80-9.50) RBC 3.81 10^6/uL L 10^6/uL (4.18-5.33) Hgb 12.4 g/dL L g/dL (12.6-16.3) Hct 37.3 % L % (38.0-47.0) MCV 97.9 fL fL (81.5-99.8) MCH 32.5 pg pg (27.9-34.1) MCHC 33.2 g/dL g/dL (32.4-36.7) RDW 12.6 % % (11.5-15.2) Plt Count 369 10^3/uL 10^3/uL (150-400) MPV 8.8 fL fL (8.7-11.7) Neut % (Auto) 55.9 % % (39.3-74.2) Lymph % (Auto) 27.5 % % (15.0-45.0) [place] % (Auto) 15.6 % H % (4.5-13.0) Eos % (Auto) 0.0 % L % (0.6-7.6) Baso % (Auto) 0.6 % % (0.3-1.7) Nucleat RBC Rel Count 0.0 % % (0.0-0.2) Absolute Neuts (auto) 3.02 10^3/uL 10^3/uL (1.70-6.50) Absolute Lymphs (auto) 1.48 10^3/uL 10^3/uL (1.00-3.00) Absolute Monos (auto) 0.84 10^3/uL H 10^3/uL (0.30-0.80) Absolute Eos (auto) 0.00 10^3/uL L 10^3/uL (0.03-0.40) Absolute Basos (auto) 0.03 10^3/uL 10^3/uL (0.02-0.10) Absolute Nucleated RBC 0.00 10^3/uL 10^3/uL (0-0.01) Immature Gran % 0.4 % % (0.0-1.1) Immature Gran # 0.02 10^3/uL 10^3/uL (0.00-0.10) VBG Lactic Acid Sodium 137 mEq/L mEq/L (135-145) Potassium 4.2 mEq/L mEq/L (3.5-5.2) Chloride 100 mEq/L mEq/L (97-110) Carbon Dioxide 24 mEq/l mEq/l (22-31) Anion Gap 13 mEq/L mEq/L (8-16) BUN 16 mg/dL mg/dL (7-23) Creatinine 0.8 mg/dL mg/dL (0.6-1.0) Estimated GFR > 60 Glucose 105 mg/dL H mg/dL (70-100) Calcium 9.3 mg/dL mg/dL (8.5-10.4) Troponin I < 0.012 ng/mL ng/mL (0.000-0.034) TSH 0.256 uIU/mL L uIU/mL (0.465-4.680) Nasal Influenza A PCR Nasal Influenza B PCR Influenza A,B Rapid Departure - Departure Disposition: Home, Routine, Self-Care Clinical Impression: Lightheaded, Influenza B Condition: Good Instructions: Near Syncope (ED), Influenza (ED) Additional Instructions: Read and follow provided instructions. Follow-up with your primary care physician tomorrow for re-evaluation without fail Take Tylenol as directed for fever control. Take Tamiflu as prescribed. Keep well hydrated. Drink plenty of fluids. A good fluid to drink is Gatorade mixed with water diluted in a 1-1 ratio over ice. Return to the emergency department at [facility] for fainting, difficulty breathing, worsening fatigue, high fever, worsening cough or other serious concerns. Referrals: NITA MANE [Primary Care Provider] - As per Instructions Prescriptions: Oseltamivir Phosphate [Tamiflu 75 mg (RX)] 75 mg PO BID #10 cap
[2017-07-04 15:29] LABS: PLATELET COUNT 369 10^3/uL (150-400)
--- NOTE | 2017-07-04 15:45 | CPEKG ---
Heart Rate: 92 RR Interval: 652 QRSD Interval: 76 QT Interval: 316 QTC Interval: 391 QRS [place]: -7 EKG Severity - ABNORMAL ECG - EKG Impression: ATRIAL FIBRILLATION, V-RATE 63-167 EKG Impression: MULTIFORM VENTRICULAR PREMATURE COMPLEXES EKG Impression: NONSPECIFIC T ABNORMALITIES, LATERAL LEADS Electronically Signed By: Carl Barrientos 04-Jul-2017 16:00:35
[2017-07-04 16:30] VITALS: TEMP 99.9; O2SAT 94
[2017-07-04] MEDS ORDERED: NS 500 ML IV ONE (17:00)
[2017-07-04] MEDS ORDERED: OSELTAMIVIR PHOSPHATE 75 MG CAP PO ONE (17:28)
[2017-07-04 17:49] VITALS: BP 95/60; PULSE 75; RESP 18
--- NOTE | 2017-07-05 10:44 | CPEKG ---
Heart Rate: 94 RR Interval: 638 QRSD Interval: 78 QT Interval: 325 QTC Interval: 407 QRS [place]: -12 T Wave [place]: 224 EKG Severity - ABNORMAL ECG - EKG Impression: ATRIAL FIBRILLATION, V-RATE 78-117 EKG Impression: NONSPECIFIC T ABNORMALITIES, LATERAL LEADS Electronically Signed For: Carl Barrientos 05-Jul-2017 10:45:18
== END 2017-07-04 18:00 | disposition home or self-care (01) ==
LOC: CED 14:18
DX: J10.1 Influenza due to other identified influenza virus with other respiratory manifestations (principal); R42 Dizziness and giddiness; E86.9 Volume depletion, unspecified; I10 Essential (primary) hypertension
CPT/HCPCS: 71046-PO; 80048-PO; 83605-PO; 84443-PO; 84484-PO; 85025-PO; 87400-PO

== ENCOUNTER 2017-08-08 10:51 | Emergency (ER) | payer OTHER ==
--- NOTE | 2017-08-08 10:59 | EDPHY ---
H & P Time Seen by Provider: 08/08/17 10:58 HPI/ROS: 77 yo F presents from her doctor's office for mild shortness of breath, chest tightness radiating to her back. She states she woke up this morning and felt fine and then about an hour later she felt like she might be coming down with a virus. She states she has a long history of atrial fibrillation and atrial flutter and that she has taken her medicines for this and does not feel this is related to her current complaints. She denies fevers or chills, she denies leg pain she denies leg swelling. I have reviewed the reports from her last several visits. Review of systems As per HPI General no fever no chills no weakness HEENT no eye pain no eye discharge. No eye redness, no sore throat Respiratory no cough, positive shortness of breath Cardiac no chest pain, no peripheral edema GI no abdominal pain, no diarrhea, no constipation, no nausea, no vomiting no flank pain, no hematuria, no dysuria Musculoskeletal no myalgias, no joint pain Heme no easy bruising, no easy bleeding Endo no polyuria, no polydipsia Skin no rashes, no pruritus Neuro no syncope, no dizziness, no headaches Psych is no suicidal ideation, no homicidal ideation Source: Patient Exam Limitations: No limitations - Personal History Current Tetanus Diphtheria and Acellular Pertussis (TDAP): Yes - Medical/Surgical History Hx Asthma: No Hx Chronic Respiratory Disease: No Hx Diabetes: No Hx Cardiac Disease: Yes Hx Renal Disease: No Hx Cirrhosis: No Hx Alcoholism: No Hx HIV/AIDS: No Hx Splenectomy or Spleen Trauma: No Other PMH: Med hx-htn/ Afib,c-diff(02/2017). Surg-hyst - Family History Significant Family History: No pertinent family hx - Social History Smoking Status: Never smoked Alcohol Use: None Drug Use: None - Physical Exam Exam: 77-year-old female alert and oriented, thin in no acute distress, no tachypnea Heart rate varies between 80 and 130, appears to be intermittently atrial fib and atrial flutter HEENT atraumatic normocephalic, extraocular muscles intact, anicteric Oropharynx negative for erythema negative exudate, tolerating her own secretions Neck supple no meningismus Lungs clear to auscultation bilaterally Heart Irregularly irregular Abdomen nondistended normoactive bowel sounds soft nontender Back no CVA tenderness, no step-offs, no spinal tenderness Extremities no cyanosis clubbing or edema Neuro alert and oriented, no focal deficits Constitutional: Initial Vital Signs Temperature (C) 36.6 C 08/08/17 10:59 Heart Rate 144 H 08/08/17 10:59 Respiratory Rate 18 08/08/17 10:59 Blood Pressure 127/89 H 08/08/17 10:59 O2 Sat (%) 97 08/08/17 10:59 O2 Delivery Mode Room Air Allergies/Adverse Reactions: No Known Allergies Allergy (Verified 07/04/17 14:29) Home Medications: Medication Instructions Recorded Furosemide [Lasix 20 MG (*)] 20 mg PO DAILY #30 tab 06/06/17 [place] Thyroid 07/04/17 Oseltamivir Phosphate [Tamiflu 75 75 mg PO BID #10 cap 07/04/17 mg (RX)] Verapamil ER 07/04/17 Medical Decision Making - Diagnostics Imaging Results: Imaging Impressions Chest X-Ray 08/08/17 11:29 Impression: No acute abnormality. ED Course/Re-evaluation: Patient seen and evaluated for mild shortness of breath, intermittently rapid heart rate, with chest tightness. EKG atrial flutter Chest x-ray normal Labs Troponin negative D-dimer negative TSH low Impression Intermittent rapid atrial flutter Hyperthyroidism Plan Discharge home Follow-up with primary care physician Follow-up with detention attendant Patient refuses any form of medication for rate control while in the emergency department. She states she has had this condition for many many years and has taken her medications this morning and does not feel that this is related to her current complaints. I advised close follow-up with her primary care physician and her detention attendant. Differential Diagnosis: Differential diagnosis considered but not limited to: URI, bronchitis, pneumonia, myocardial infarction, pulmonary embolus, demand ischemia secondary to rapid heart rate, paroxysmal atrial fibrillation/atrial flutter - Data Points Laboratory Results: Laboratory Results 08/08/17 11:00 08/08/17 11:00 08/08/17 08/08/17 08/08/17 11:00 11:00 11:00 WBC RBC Hgb Hct MCV MCH MCHC RDW Plt Count MPV Neut % (Auto) Lymph % (Auto) [place] % (Auto) Eos % (Auto) Baso % (Auto) Nucleat RBC Rel Count Absolute Neuts (auto) Absolute Lymphs (auto) Absolute Monos (auto) Absolute Eos (auto) Absolute Basos (auto) Absolute Nucleated RBC Immature Gran % Immature Gran # PT 12.7 SEC SEC (12.0-15.0) INR 0.96 (0.83-1.16) APTT 29.7 SEC SEC (23.0-38.0) D-Dimer 0.46 ug/mLFEU ug/mLFEU (0.00-0.50) Sodium 138 mEq/L mEq/L (135-145) Potassium 4.1 mEq/L mEq/L (3.5-5.2) Chloride 104 mEq/L mEq/L (97-110) Carbon Dioxide 22 mEq/l mEq/l (22-31) Anion Gap 12 mEq/L mEq/L (8-16) BUN 15 mg/dL mg/dL (7-23) Creatinine 0.8 mg/dL mg/dL (0.6-1.0) Estimated GFR > 60 Glucose 109 mg/dL H mg/dL (70-100) Calcium 9.8 mg/dL mg/dL (8.5-10.4) Total Bilirubin 1.0 mg/dL mg/dL (0.1-1.4) AST 20 IU/L IU/L (14-46) ALT 33 IU/L IU/L (9-52) Alkaline Phosphatase 79 IU/L IU/L (38-126) Troponin I < 0.012 ng/mL ng/mL (0.000-0.034) NT-Pro-B Natriuret Pep 564 pg/mL H pg/mL (0-450) Total Protein 7.2 g/dL g/dL (6.3-8.2) Albumin 4.0 g/dL g/dL (3.5-5.0) TSH 0.142 uIU/mL L uIU/mL (0.465-4.680) 08/08/17 11:00 WBC 10.73 10^3/uL H 10^3/uL (3.80-9.50) RBC 4.10 10^6/uL L 10^6/uL (4.18-5.33) Hgb 13.4 g/dL g/dL (12.6-16.3) Hct 40.2 % % (38.0-47.0) MCV 98.0 fL fL (81.5-99.8) MCH 32.7 pg pg (27.9-34.1) MCHC 33.3 g/dL g/dL (32.4-36.7) RDW 14.2 % % (11.5-15.2) Plt Count 278 10^3/uL 10^3/uL (150-400) MPV 9.3 fL fL (8.7-11.7) Neut % (Auto) 64.6 % % (39.3-74.2) Lymph % (Auto) 25.7 % % (15.0-45.0) [place] % (Auto) 8.2 % % (4.5-13.0) Eos % (Auto) 0.7 % % (0.6-7.6) Baso % (Auto) 0.5 % % (0.3-1.7) Nucleat RBC Rel Count 0.0 % % (0.0-0.2) Absolute Neuts (auto) 6.93 10^3/uL H 10^3/uL (1.70-6.50) Absolute Lymphs (auto) 2.76 10^3/uL 10^3/uL (1.00-3.00) Absolute Monos (auto) 0.88 10^3/uL H 10^3/uL (0.30-0.80) Absolute Eos (auto) 0.08 10^3/uL 10^3/uL (0.03-0.40) Absolute Basos (auto) 0.05 10^3/uL 10^3/uL (0.02-0.10) Absolute Nucleated RBC 0.00 10^3/uL 10^3/uL (0-0.01) Immature Gran % 0.3 % % (0.0-1.1) Immature Gran # 0.03 10^3/uL 10^3/uL (0.00-0.10) PT INR APTT D-Dimer Sodium Potassium Chloride Carbon Dioxide Anion Gap BUN Creatinine Estimated GFR Glucose Calcium Total Bilirubin AST ALT Alkaline Phosphatase Troponin I NT-Pro-B Natriuret Pep Total Protein Albumin TSH Departure - Departure Disposition: Home, Routine, Self-Care Clinical Impression: Dyspnea, Atrial flutter by electrocardiogram Condition: Good Instructions: Atrial Flutter (ED), Chest Pain (ED) Additional Instructions: See your doctor this week. Referrals: NITA MANE [Primary Care Provider] - As per Instructions
--- NOTE | 2017-08-08 11:15 | CPEKG ---
Heart Rate: 109 RR Interval: 550 QRSD Interval: 80 QT Interval: 352 QTC Interval: 475 QRS [place]: 46 T Wave [place]: 63 EKG Severity - ABNORMAL ECG - EKG Impression: ATRIAL FLUTTER, A-RATE 283 EKG Impression: BORDERLINE INFERIOR Q WAVES EKG Impression: BORDERLINE T ABNORMALITIES, LATERAL LEADS EKG Impression: BORDERLINE ST ELEVATION, INFERIOR LEADS Electronically Signed By: Sabina Lockwood 09-Aug-2017 06:06:28
[2017-08-08 11:16] LABS: PLATELET COUNT 278 10^3/uL (150-400)
[2017-08-08 11:28] LABS: INR 0.96 (0.83-1.16); PROTIME(PATIENT) 12.7 SEC (12.0-15.0)
[2017-08-08 17:01] VITALS: BP 137/66
== END 2017-08-08 12:24 | disposition home or self-care (01) ==
LOC: CED 10:51
DX: I48.92 Unspecified atrial flutter (principal); I10 Essential (primary) hypertension
CPT/HCPCS: 71046-PO; 80053-PO; 83880-PO; 84443-PO; 84484-PO; 85025-PO; 85378-PO; 85610-PO; 85730-PO